=== PATIENT | male | born 1965 | race African-American/Black ===

== ENCOUNTER 2017-04-27 08:43 | Day surgery (SDC) | payer OTHER ==
[2017-04-24 13:18] VITALS: BMI 35.4
[2017-04-27 09:31] VITALS: TEMP 98.4
[2017-04-27] MEDS ORDERED: MIDAZOLAM HCL 2 MG/2 ML SINGLE DOSE VIAL ONE (12:14)
[2017-04-27] MEDS ORDERED: PROPOFOL 20 ML ONE (12:23)
[2017-04-27] MEDS ORDERED: LIDOCAINE HCL/PF 2% SDV 5ML VIAL ONE (12:27)
[2017-04-27] MEDS ORDERED: LEVOFLOXACIN 500 MG PREMIX BAG IVPB ONE (12:30)
[2017-04-27 14:06] VITALS: BP 126/61
[2017-04-27 14:08] VITALS: PULSE 70
--- NOTE | 2017-04-27 17:49 | OP ---
Operative Note - Note: Operative Date: 04/27/17 Pre-Operative Diagnosis: right stone Operation: right eswl Post-Operative Diagnosis: Same as Pre-op Surgeon: Manish Bales Anesthesia: Fractional
== END 2017-04-27 14:10 | disposition home or self-care (01) ==
LOC: JASU-SURG 08:43
PROVIDERS: ATTEND Urology
PROC: 0TF3XZZ Fragmentation in Right Kidney Pelvis, External Approach (ICD-10-PCS; principal; 2017-04-27 10:15)
DX: N20.0 Calculus of kidney (principal)

== ENCOUNTER 2022-03-11 05:09 | Day surgery (SDC) | payer BC ==
[2022-03-10 10:20] VITALS: BMI 34.2
[2022-03-11] MEDS ORDERED: FENTANYL CITRATE/PF 50 MCG/ML VIAL ONE (09:32)
[2022-03-11 10:46] VITALS: TEMP 97
[2022-03-11 13:08] VITALS: BP 114/57; PULSE 58; RESP 18
== END 2022-03-11 11:10 | disposition home or self-care (01) ==
LOC: JASU-ENDO 05:09
PROVIDERS: ATTEND Student in an Organized Health Care Education/Training Program
PROC: 0DB68ZX Excision of Stomach, Via Natural or Artificial Opening Endoscopic, Diagnostic (ICD-10-PCS; 2022-03-11)
PROC: 0DB28ZX Excision of Middle Esophagus, Via Natural or Artificial Opening Endoscopic, Diagnostic (ICD-10-PCS; 2022-03-11)
PROC: 0DB98ZX Excision of Duodenum, Via Natural or Artificial Opening Endoscopic, Diagnostic (ICD-10-PCS; principal; 2022-03-11 10:30)
DX: K29.50 Unspecified chronic gastritis without bleeding (principal); B96.81 Helicobacter pylori [H. pylori] as the cause of diseases classified elsewhere
CPT/HCPCS: 82962; 88305-TC; 88342-TC

== ENCOUNTER 2022-03-25 04:37 | Day surgery (SDC) | payer BC ==
[2022-03-20 16:24] VITALS: BMI 34.2
[2022-03-25 10:42] VITALS: TEMP 97.8
[2022-03-25 11:24] VITALS: BP 144/65; PULSE 70; RESP 14
== END 2022-03-25 12:15 | disposition home or self-care (01) ==
LOC: JASU-ENDO 04:37
PROVIDERS: ATTEND Student in an Organized Health Care Education/Training Program
PROC: 0DBH8ZX Excision of Cecum, Via Natural or Artificial Opening Endoscopic, Diagnostic (ICD-10-PCS; 2022-03-25)
PROC: 0D5P8ZZ Destruction of Rectum, Via Natural or Artificial Opening Endoscopic (ICD-10-PCS; principal; 2022-03-25 09:00)
DX: D12.0 Benign neoplasm of cecum (principal); K62.1 Rectal polyp; K64.0 First degree hemorrhoids
CPT/HCPCS: 88305-TC